=== PATIENT | female | born 1980 | race Caucasian/White ===

== ENCOUNTER 2018-01-30 07:39 | Day surgery (SDC) | payer MEDICARE ==
[2018-01-29 12:01] LABS: CHLORIDE,CL 103 mmol/L (98-107); SODIUM,NA 139 mmol/L (136-145)
[~2018-01-30 07:39] MED LIST: Sodium Chloride 0.9% 1,000 ML IV SCH; Sodium Chloride 0.9% 10 ML Syringe FLUSH PRN; Sodium Chloride 0.9% 2.5 ML Syringe FLUSH PRN; ceFAZolin 2 GM in Premix Bag 1 BAG IV ONE
[2018-01-30] MEDS ORDERED: fentaNYL 100 MCG/2 ML SDV IVPUSH PRN (08:28)
--- NOTE | 2018-01-30 08:36 | PCM.PREANE ---
Preanesthetic Assessment - Anesthesia/Transfusion/Family Hx Anesthesia History: Prior Anesthesia Without Reaction Family History of Anesthesia Reaction: No Transfusion History: No Prior Transfusion(s) - Review of Systems General: No Symptoms Pulmonary: No Symptoms Cardiovascular: No Symptoms Gastrointestinal: No Symptoms Neurological: No Symptoms Other: Reports: None - Physical Assessment NPO Status Date: 01/29/18 O2 Sat by Pulse Oximetry: 98 Respiratory Rate: 16 Vital Signs: Last Vital Signs Temp 36.8 C 01/30/18 08:15 Pulse 81 01/30/18 08:15 Resp 16 01/30/18 08:15 BP 124/71 01/30/18 08:15 Pulse Ox 98 01/30/18 08:15 Height: 1.75 m Weight: 90.265 kg ASA Class: 1 Mental Status: Alert & Oriented x3 Airway Class: Mallampati = 1 Dentition: Reports: Normal Dentition ROM/Head Extension: Full Lungs: Clear to Auscultation, Normal Respiratory Effort Cardiovascular: Regular Rate, Regular Rhythm - Lab Values: Laboratory Last Values WBC 4.64 K/uL (4.0-11.0) 01/29/18 11:18 RBC 4.60 M/uL (4.30-5.90) 01/29/18 11:18 Hgb 10.8 g/dL (12.0-16.0) L 01/29/18 11:18 Hct 35.3 % (36.0-46.0) L 01/29/18 11:18 MCV 76.7 fL (80.0-98.0) L 01/29/18 11:18 MCH 23.5 pg (27.0-32.0) L 01/29/18 11:18 MCHC 30.6 g/dL (31.0-37.0) L 01/29/18 11:18 RDW Std Deviation 43.0 fl (28.0-62.0) 01/29/18 11:18 RDW Coeff of Catarino 16 % (11.0-15.0) H 01/29/18 11:18 Plt Count 256 K/uL (150-400) 01/29/18 11:18 MPV 10.20 fL (7.40-12.00) 01/29/18 11:18 Sodium 139 mmol/L (136-145) 01/29/18 11:18 Potassium 4.0 mmol/L (3.5-5.1) 01/29/18 11:18 Chloride 103 mmol/L (98-107) 01/29/18 11:18 Carbon Dioxide 26.9 mmol/L (21.0-32.0) 01/29/18 11:18 BUN 15 mg/dL (7.0-18.0) 01/29/18 11:18 Creatinine 0.8 mg/dL (0.6-1.0) 01/29/18 11:18 Est Cr Clr Drug Dosing 100.62 mL/min 01/29/18 11:18 Estimated GFR (MDRD) > 60.0 ml/min 01/29/18 11:18 Glucose 91 mg/dL (74-106) 01/29/18 11:18 Calcium 9.0 mg/dL (8.5-10.1) 01/29/18 11:18 HCG, Qual NEGATIVE (NEG) 01/29/18 11:18 Blood Type O POSITIVE 01/29/18 11:18 Antibody Screen NEGATIVE 01/29/18 11:18 - Allergies Allergies/Adverse Reactions: Allergies Allergy/AdvReac Type Severity Reaction Status Date / Time Penicillins Allergy Rash Verified 01/23/18 11:12 - Anesthesia Plan Pre-Op Medication Ordered: None - Acknowledgements Anesthesia Type Planned: General Anesthesia Pt an Appropriate Candidate for the Planned Anesthesia: Yes Alternatives and Risks of Anesthesia Discussed w Pt/Guardian: Yes Pt/Guardian Understands and Agrees with Anesthesia Plan: Yes PreAnesthesia Questionnaire HEENT History: Reports: Other (See Below) Other HEENT History: has upper partial removable denture Musculoskeletal History: Reports: Back Pain, Chronic, Neck Pain, Chronic Psychiatric History: Reports: PTSD Hematologic History: Reports: Anemia - Past Surgical History Female Surgical History: Reports: Tubal Ligation - SUBSTANCE USE Smoking Status *Q: Never Smoker Recreational Drug Use History: No - HOME MEDS Home Medications: Home Meds Ferrous Sulfate 1 tab PO DAILY 01/23/18 [History] - CURRENT (IN HOUSE) MEDS Current Meds: Current Medications Fentanyl (Sublimaze) 50 mcg IVPUSH Q5M PRN PRN Reason: Pain (severe 7-10) Stop: 01/31/18 08:29 Sodium Chloride (Normal Saline) 1,000 mls @ 125 mls/hr IV ASDIRECTED MARLENE Last Admin: 10/04/18 08:15 Dose: 125 mls/hr Sodium Chloride (Saline Flush) 10 ml FLUSH ASDIRECTED PRN PRN Reason: Keep Vein Open Sodium Chloride (Saline Flush) 2.5 ml FLUSH ASDIRECTED PRN PRN Reason: Keep Vein Open Discontinued Medications Cefazolin Sodium/Dextrose 2 gm (/ Premix) 50 mls @ 100 mls/hr IV ONETIME ONE Stop: 01/29/18 11:37
[2018-01-30] MEDS ORDERED: Midazolam 1 MG/ML 2 ML SDV ONE (09:12)
[2018-01-30] MEDS ORDERED: Propofol 200 MG/20 ML SDV ONE (09:12)
[2018-01-30] MEDS ORDERED: fentaNYL 250 MCG/5 ML SDV ONE (09:12)
[2018-01-30] MEDS ORDERED: Ondansetron 4 MG/2 ML SDV ONE (09:12)
[2018-01-30] MEDS ORDERED: Lidocaine 2% 5 ML SDV ONE (09:12)
[2018-01-30] MEDS ORDERED: Morphine 4 MG/ML Syringe IVPUSH PRN (11:15)
[2018-01-30] MEDS ORDERED: Acetaminophen/oxyCODONE 325-5 MG Tab PO PRN ×2 (11:15)
[2018-01-30] MEDS ORDERED: Promethazine 25 MG/ML SDV IM PRN (11:15)
[2018-01-30] MEDS ORDERED: Ketorolac 30 MG/ML SDV IVPUSH ONE (11:15)
[2018-01-30] MEDS ORDERED: Ondansetron 4 MG/2 ML SDV IVPUSH PRN (11:15)
--- NOTE | 2018-01-30 11:19 | PCM.OPNOTE ---
- General Post-Op/Procedure Note Date of Surgery/Procedure: 01/30/18 Operative Procedure(s): Hystoroscopy Endometrial ablation Pre Op Diagnosis: DUB Post-Op Diagnosis: Same Anesthesia Technique: General ET Tube Primary Surgeon: Daniel Marshall Certified [place] Administrator: Carolina Camejo EBL in mLs: 20 Complications: None Condition: Good
--- NOTE | 2018-01-30 11:20 | PCM.DCSUM1 ---
Discharge Summary - Hospital Course Diagnosis: Stroke: No - Discharge Data Discharge Date: 01/30/18 Discharge Disposition: Home, Self-Care 01 Condition: Good - Patient Summary/Data Operative Procedure(s) Performed: Hystoroscopy Endometrial ablation - Patient Instructions Diet: Usual Diet as Tolerated Activity: As Tolerated Driving: Do Not Drive Showering/Bathing: August Shower - Discharge Plan Home Medications: Home Meds Ferrous Sulfate 1 tab PO DAILY 01/23/18 [History] - General Info Date of Service: 01/30/18 Functional Status: Reports: Pain Controlled - Review of Systems General: Reports: No Symptoms HEENT: Reports: No Symptoms Pulmonary: Reports: No Symptoms Cardiovascular: Reports: No Symptoms Gastrointestinal: Reports: No Symptoms Genitourinary: Reports: No Symptoms Musculoskeletal: Reports: No Symptoms Skin: Reports: No Symptoms Neurological: Reports: No Symptoms Psychiatric: Reports: No Symptoms - Patient Data Vitals - Most Recent: Last Vital Signs Temp 36.8 C 01/30/18 08:15 Pulse 81 01/30/18 08:15 Resp 16 01/30/18 08:36 BP 124/71 01/30/18 08:15 Pulse Ox 98 01/30/18 08:36 Weight - Most Recent: 90.265 kg Lab Results - Last 24 hrs: Laboratory Results - last 24 hr 01/29/18 01/29/18 01/29/18 Range/Units 11:18 11:18 11:18 WBC 4.64 (4.0-11.0) K/uL RBC 4.60 (4.30-5.90) M/uL Hgb 10.8 L (12.0-16.0) g/dL Hct 35.3 L (36.0-46.0) % MCV 76.7 L (80.0-98.0) fL MCH 23.5 L (27.0-32.0) pg MCHC 30.6 L (31.0-37.0) g/dL RDW Std Deviation 43.0 (28.0-62.0) fl RDW Coeff of Catarino 16 H (11.0-15.0) % Plt Count 256 (150-400) K/uL MPV 10.20 (7.40-12.00) fL Sodium 139 (136-145) mmol/L Potassium 4.0 (3.5-5.1) mmol/L Chloride 103 (98-107) mmol/L Carbon Dioxide 26.9 (21.0-32.0) mmol/L BUN 15 (7.0-18.0) mg/dL Creatinine 0.8 (0.6-1.0) mg/dL Est Cr Clr Drug Dosing 100.62 mL/min Estimated GFR (MDRD) > 60.0 ml/min Glucose 91 (74-106) mg/dL Calcium 9.0 (8.5-10.1) mg/dL HCG, Qual NEGATIVE (NEG) Blood Type Antibody Screen 01/29/18 Range/Units 11:18 WBC (4.0-11.0) K/uL RBC (4.30-5.90) M/uL Hgb (12.0-16.0) g/dL Hct (36.0-46.0) % MCV (80.0-98.0) fL MCH (27.0-32.0) pg MCHC (31.0-37.0) g/dL RDW Std Deviation (28.0-62.0) fl RDW Coeff of Catarino (11.0-15.0) % Plt Count (150-400) K/uL MPV (7.40-12.00) fL Sodium (136-145) mmol/L Potassium (3.5-5.1) mmol/L Chloride (98-107) mmol/L Carbon Dioxide (21.0-32.0) mmol/L BUN (7.0-18.0) mg/dL Creatinine (0.6-1.0) mg/dL Est Cr Clr Drug Dosing mL/min Estimated GFR (MDRD) ml/min Glucose (74-106) mg/dL Calcium (8.5-10.1) mg/dL HCG, Qual (NEG) Blood Type O POSITIVE Antibody Screen NEGATIVE Med Orders - Current: Current Medications Fentanyl (Sublimaze) 50 mcg IVPUSH Q5M PRN PRN Reason: Pain (severe 7-10) Stop: 01/31/18 08:29 Sodium Chloride (Normal Saline) 1,000 mls @ 125 mls/hr IV ASDIRECTED MARLENE Last Admin: 01/30/18 08:15 Dose: 125 mls/hr Ketorolac Tromethamine (Toradol) 30 mg IVPUSH ONETIME ONE Stop: 01/30/18 11:16 Ketorolac Tromethamine (Toradol) 30 mg IVPUSH Q6H PRN PRN Reason: Pain (severe 7-10) Stop: 02/04/18 11:15 Morphine Sulfate (Morphine) 4 mg IVPUSH Q2H PRN PRN Reason: Pain (severe 7-10) Ondansetron HCl (Zofran) 4 mg IVPUSH Q6H PRN PRN Reason: Nausea/Vomiting Oxycodone/Acetaminophen (Percocet 325-5 Mg) 1 tab PO Q4H PRN PRN Reason: Pain (moderate 4-6) Oxycodone/Acetaminophen (Percocet 325-5 Mg) 2 tab PO Q4H PRN PRN Reason: Pain (moderate 4-6) Promethazine HCl (Phenergan) 25 mg IM Q6H PRN PRN Reason: Nausea/Vomiting Sodium Chloride (Saline Flush) 10 ml FLUSH ASDIRECTED PRN PRN Reason: Keep Vein Open Sodium Chloride (Saline Flush) 2.5 ml FLUSH ASDIRECTED PRN PRN Reason: Keep Vein Open Discontinued Medications Fentanyl (Sublimaze) Confirm Administered Dose 250 mcg .ROUTE .STK-MED ONE Stop: 01/30/18 09:13 Cefazolin Sodium/Dextrose 2 gm (/ Premix) 50 mls @ 100 mls/hr IV ONETIME ONE Stop: 01/29/18 11:37 Lidocaine (Xylocaine-Mpf 2%) Confirm Administered Dose 5 ml .ROUTE .STK-MED ONE Stop: 01/30/18 09:13 Midazolam HCl (Versed 1 Mg/Ml) Confirm Administered Dose 2 mg .ROUTE .STK-MED ONE Stop: 01/30/18 09:13 Ondansetron HCl (Zofran) Confirm Administered Dose 4 mg .ROUTE .STK-MED ONE Stop: 01/30/18 09:13 Propofol (Diprivan 20 Ml) Confirm Administered Dose 200 mg .ROUTE .STK-MED ONE Stop: 01/30/18 09:13 - Exam General: Reports: Alert, Oriented HEENT: Reports: Pupils Equal, Pupils Reactive, EOMI, Mucous Membr. Moist/[place] Neck: Reports: Supple Lungs: Reports: Clear to Auscultation, Normal Respiratory Effort Cardiovascular: Reports: Regular Rate, Regular Rhythm GI/Abdominal Exam: Normal Bowel Sounds, Soft, Non-Tender, No Organomegaly, No Distention, No Abnormal Bruit, No Mass, Pelvis Stable (Female) Exam: Normal External Exam, Normal Speculum Exam, Normal Bimanual Exam Rectal (Female) Exam: Normal Exam, Normal Rectal Tone Back Exam: Reports: Normal Inspection, Full Range of Motion Extremities: Normal Inspection, Normal Range of Motion, Non-Tender, No Pedal Edema, Normal Capillary Refill Skin: Reports: Warm, Dry, Intact Wound/Incisions: Reports: Healing Well Neurological: Reports: No New Focal Deficit Psy/Mental Status: Reports: Alert, Normal Affect, Normal Mood
--- NOTE | 2018-01-30 11:42 | PCM.POSTAN ---
POST ANESTHESIA ASSESSMENT - MENTAL STATUS Mental Status: Alert, Oriented - RESPIRATORY Respiratory Status: Respiratory Rate WNL, Airway Patent, O2 Saturation Stable - CARDIOVASCULAR CV Status: Pulse Rate WNL, Blood Pressure Stable - GASTROINTESTINAL GI Status: No Symptoms - PAIN Pain Score: 0 - POST OP HYDRATION Hydration Status: Adequate & Stable
--- NOTE | 2018-01-30 12:16 | PCM48HPAN ---
Post Anesthesia Note - EVALUATION WITHIN 48HRS OF ANESTHETIC Vital Signs in Normal Range: Yes Patient Participated in Evaluation: Yes Respiratory Function Stable: Yes Airway Patent: Yes Cardiovascular Function Stable: Yes Hydration Status Stable: Yes Pain Control Satisfactory: Yes Nausea and Vomiting Control Satisfactory: Yes Mental Status Recovered: Yes Resp Rate: 16
--- NOTE | 2018-01-30 13:15 | OR ---
SURGEON: Daniel Marshall MD DATE OF PROCEDURE: 01/30/2018 PREOPERATIVE DIAGNOSIS: Dysfunctional uterine bleeding. POSTOPERATIVE DIAGNOSIS: Dysfunctional uterine bleeding. OPERATION PERFORMED: Hysteroscopy and endometrial ablation. STEAM FRAME OPERATOR: BRO Barber. ANESTHESIA: General endotracheal intubation, Constantine Puga. ESTIMATED BLOOD LOSS: Less than 20 mL. COMPLICATIONS: None. FINDINGS: Thickening of the endometrium. INDICATION FOR SURGERY: [place] refer to the admit note. PROCEDURE IN DETAIL: The patient was brought to the OR, properly identified and after adequate level of anesthesia, the patient was placed in lithotomy position, prepped and draped in sterile fashion as usual. She was initially dilated to accommodate the hysteroscope. Hysteroscopy was performed, and endometrial cavities have no fibroid, no polyps that was documented. Then, using NovaSure ablation following the proper step and the guidelines, the ablation was placed and all the check ryan was followed and passed the check ryan, the cervix was sealed and then the ablation was performed for 2 minutes. Once this was done, the ablation was removed and hysteroscopy was performed. The endometrial cavity was properly and completely ablated. Satisfied with these findings, instruments harvested from the vagina. Instrument and sponge counts were correct. The patient tolerated the procedure well and went to recovery room in stable general condition. XIOMARA / VAN /[id number]
[2018-01-30] MEDS ORDERED: Ketorolac 30 MG/ML SDV IVPUSH PRN (17:30)
== END 2018-01-30 13:49 | disposition home or self-care (01) ==
LOC: MW.SDS 07:39
PROVIDERS: ATTEND Obstetrics & Gynecology
DX: N93.8 Other specified abnormal uterine and vaginal bleeding (principal); N92.0 Excessive and frequent menstruation with regular cycle; D64.9 Anemia, unspecified
CPT/HCPCS: 36415; 58563; 80048; 84703; 85027; 86850; 86900; 86901; A9270; J1885; J2250; J2405; J2704; J3010; J7040

== ENCOUNTER 2018-06-01 08:14 | Emergency (ER) | payer MEDICARE, MEDICAID ==
[2018-06-01] MEDS ORDERED: Ibuprofen 600 MG Tab PO ONE (08:30)
--- NOTE | 2018-06-01 08:33 | EDM.PDOC ---
ED HPI GENERAL MEDICAL PROBLEM - General Chief Complaint: Lower Extremity Injury/Pain Stated Complaint: TWISTED ANKLE Time Seen by Provider: 06/01/18 08:21 - History of Present Illness INITIAL COMMENTS - FREE TEXT/NARRATIVE: HISTORY AND PHYSICAL: History of present illness: The patient is a healthy 37-year-old female with history of a tubal ligation who presents after rolling and twisting her ankle on some stairs at about 4 AM, 4-1/2 hours ago. The patient said she was trying to avoid a cat when she did this she did not fall to the ground and caught herself. She didn't hit her head pass out or black out and has no head neck or back pain complains of pain only at the lateral left ankle. She denies foot or toe pain and heel pain in proximal leg knee thigh or hip pain. She has no history of prior injuries of this ankle and only took 200 mg of ibuprofen this morning. Review of systems: As per history of present illness and below otherwise all systems reviewed and negative. Past medical history: As per history of present illness and as reviewed below otherwise noncontributory. Surgical history: As per history of present illness and as reviewed below otherwise noncontributory. Social history: No reported history of drug or alcohol abuse. Family history: As per history of present illness and as reviewed below otherwise noncontributory. Physical exam: General: Well-developed well-nourished female who is nontoxic and vital signs were noted by me. HEENT: Atraumatic, normocephalic negative for conjunctival pallor or scleral icterus, mucous membranes moist, throat clear, neck supple, nontender, trachea midline. Lungs: Clear to auscultation, breath sounds equal bilaterally, chest nontender. Heart: S1S2, regular rate and rhythm no overt murmurs Abdomen: Deferred Pelvis: Stable nontender. Genitourinary: Deferred. Rectal: Deferred. Extremities: Atraumatic with full range of motion of all extremities with the exception of the left ankle. At the lateral left ankle there is diffuse soft tissue swelling and tenderness but no bony defects are appreciated. Alignment of the ankle appears to be normal and pulses distally are intact as is good cap refill. There is no metatarsal calcaneal or toe tenderness in the left foot distally. There is no proximal tib-fib knee thigh or hip pain defects or deformities.the calves are negative for cords or calf pain. Neurovascular unremarkable. Neuro: Awake, alert, oriented. Cranial nerves II through XII unremarkable. Cerebellum unremarkable. Motor and sensory unremarkable throughout. Exam nonfocal. Diagnostics: X-ray left ankle Therapeutics: Ice pack, ibuprofen, crutches orthopedic boot Impression: Left ankle injury/left ankle sprain Definitive disposition and diagnosis as appropriate pending reevaluation and review of above. left ankle Pain Score (Numeric/FACES): 7 - Related Data Allergies Allergy/AdvReac Type Severity Reaction Status Date / Time Penicillins Allergy Rash Verified 06/01/18 08:24 Home Meds: Home Meds Ferrous Sulfate 1 tab PO DAILY 01/23/18 [History] Past Medical History HEENT History: Reports: Other (See Below) Other HEENT History: has upper partial removable denture Cardiovascular History: Reports: None Respiratory History: Reports: None Gastrointestinal History: Reports: None Genitourinary History: Reports: None SENIOR ACCOUNT DIRECTOR History: Reports: None Musculoskeletal History: Reports: Back Pain, Chronic, Neck Pain, Chronic Neurological History: Reports: None Psychiatric History: Reports: PTSD Endocrine/Metabolic History: Reports: None Hematologic History: Reports: Anemia Immunologic History: Reports: None Oncologic (Cancer) History: Reports: None Dermatologic History: Reports: None - Infectious Disease History Infectious Disease History: Reports: Chicken Pox, Other (See Below) Other Infectious Disease History: childhood - Past Surgical History Head Surgeries/Procedures: Reports: None HEENT Surgical History: Reports: None Cardiovascular Surgical History: Reports: None Respiratory Surgical History: Reports: None GI Surgical History: Reports: None Female Surgical History: Reports: Tubal Ligation Endocrine Surgical History: Reports: None Neurological Surgical History: Reports: None Musculoskeletal Surgical History: Reports: None Oncologic Surgical History: Reports: None Dermatological Surgical History: Reports: None Social & Family History - Family History Family Medical History: Noncontributory - Tobacco Use Smoking Status *Q: Never Smoker Second Hand Smoke Exposure: No - Caffeine Use Caffeine Use: Reports: Coffee, Energy Drinks, Soda, Tea - Recreational Drug Use Recreational Drug Use: No Review of Systems - Review of Systems Review Of Systems: ROS reveals no pertinent complaints other than HPI. ED EXAM, GENERAL - Physical Exam Exam: See Below (see dictation) Course - Vital Signs Last Recorded V/S: Last Vital Signs Temp 36.4 C 06/01/18 08:22 Pulse 90 06/01/18 08:22 Resp 16 06/01/18 08:22 BP 128/89 06/01/18 08:22 Pulse Ox 99 06/01/18 08:22 - Orders/Labs/Meds Orders: Active Orders 24 hr Category Date Time Status DME for Discharge [COMM] Stat Oth 06/01/18 09:01 Ordered Meds: Medications Discontinued Medications Generic Name Dose Route Start Last Admin Trade Name Osvaldo PRN Reason Stop Dose Admin Ibuprofen 600 mg 06/01/18 08:30 06/01/18 08:42 Motrin PO 06/01/18 08:31 600 mg ONETIME ONE Administration Departure - Departure Time of Disposition: 09:02 Disposition: Home, Self-Care 01 Condition: Good Clinical Impression: Left ankle injury Qualifiers: Encounter type: initial encounter Qualified Code(s): S99.912A - Unspecified injury of left ankle, initial encounter - Discharge Information Referrals: PCP,Unknown [Primary Care Provider] - Forms: ED Department Discharge Additional Instructions: The following information is given to patients seen in the emergency department who are being discharged to home. This information is to outline your options for follow-up care. We provide all patients seen in our emergency department with a follow-up referral. The need for follow-up, as well as the timing and circumstances, are variable depending upon the specifics of your emergency department visit. If you don't have a primary care physician on staff, we will provide you with a referral. We always advise you to contact your personal physician following an emergency department visit to inform them of the circumstance of the visit and for follow-up with them and/or the need for any referrals to a consulting specialist. The emergency department will also refer you to a specialist when appropriate. This referral assures that you have the opportunity for followup care with a specialist. All of these measure are taken in an effort to provide you with optimal care, which includes your followup. Under all circumstances we always encourage you to contact your private physician who remains a resource for coordinating your care. When calling for followup care, please make the office aware that this follow-up is from your recent emergency room visit. If for any reason you are refused follow-up, please contact the [facility] emergency department at and ask to speak to the emergency department charge nurse. [facility]--Orthopedic clinic Professional [address] [address] Ice and elevate the ankle as much as possible and do not weight-bear until you' re followed up in the clinic. Use crutches at all times. Wear the orthopedic boot been given at all times and loosen and/or remove at sleep times. Please call the clinic tomorrow morning at 8 AM to schedule a follow-up appointment for further care and evaluation and return to ER as needed and as discussed. Use [id number] ibuprofen and/or Tylenol in the appropriate doses for your size for pain management - My Orders Last 24 Hours: My Active Orders 06/01/18 09:01 DME for Discharge [COMM] Stat - Assessment/Plan Last 24 Hours: My Active Orders 06/01/18 09:01 DME for Discharge [COMM] Stat
--- NOTE | 2018-06-01 08:59 | CR ---
HISTORY: Fall. Ankle injury. TECHNIQUE: Three views of left ankle. COMPARISON: No prior. FINDINGS: No acute fracture. There is soft tissue swelling overlying the lateral malleolus. Mild ankle joint degenerative changes. No widening of the ankle mortise. Tiny plantar calcaneal spur. Small focus of ossification at the Achilles attachment to posterior calcaneus. IMPRESSION: 1. No acute fracture. 2. Soft tissue swelling overlying the lateral malleolus. Dictated by Leland English MD @ 06/01/2018 8:57:40 AM Dictated by: Leland English MD @ 06/01/2018 08:57:44 (Electronically Signed)
== END 2018-06-01 09:18 | disposition home or self-care (01) ==
LOC: MW.ED 08:14
DX: S99.912A Unspecified injury of left ankle, initial encounter (principal); Z88.0 Allergy status to penicillin; X50.1XXA Overexertion from prolonged static or awkward postures, initial encounter
CPT/HCPCS: 73610; 99283; A9270

== ENCOUNTER 2019-06-04 17:25 | Emergency (ER) | payer MEDICAID, MEDICARE ==
[2019-06-04] MEDS ORDERED: Azithromycin 250 MG Tab PO ONE (18:58)
[2019-06-04] MEDS ORDERED: guaiFENesin 600 MG Tab.ER PO ONE (18:59)
[2019-06-04] MEDS ORDERED: Benzonatate 100 MG Cap PO ONE (19:00)
--- NOTE | 2019-06-04 19:01 | EDM.PDOC ---
ED HPI GENERAL MEDICAL PROBLEM - General Chief Complaint: Respiratory Problem Stated Complaint: COUGH Time Seen by Provider: 06/04/19 18:22 Source of Information: Reports: Patient History Limitations: Reports: No Limitations - History of Present Illness INITIAL COMMENTS - FREE TEXT/NARRATIVE: This 38 year old female is admitted to the ED with a chief complaint of coughing (non-productive) for 2-3 days. She states that she is taking in fluids fine and eating well. No nausea or vomiting. She is status post tubal ligation. She denies any other symptoms at this time. Onset: Gradual (three days) Duration: Getting Worse Location: Reports: Chest Severity: Mild (to moderate) Associated Symptoms: Reports: Cough, Shortness of Breath (mild SOB). Denies: cough w sputum, Fever/Chills, Nausea/Vomiting ribs Pain Score (Numeric/FACES): 5 - Related Data Allergies Allergy/AdvReac Type Severity Reaction Status Date / Time Penicillins Allergy Rash Verified 06/04/19 18:00 Home Meds: Home Meds Azithromycin [Zithromax] 500 mg PO DAILY 7 Days #7 tab 06/04/19 [Rx] Benzonatate 100 mg PO BID PRN 5 Days #10 capsule 06/04/19 [Rx] guaiFENesin [Mucinex] 600 mg PO BID 5 Days #10 tab.er.12h 06/04/19 [Rx] Past Medical History HEENT History: Reports: Other (See Below) Other HEENT History: has upper partial removable denture Cardiovascular History: Reports: None Respiratory History: Reports: None Gastrointestinal History: Reports: None Genitourinary History: Reports: None CIG[employer] P[employer]ER [employer] P[employer]ER History: Reports: None Musculoskeletal History: Reports: Back Pain, Chronic, Neck Pain, Chronic Neurological History: Reports: None Psychiatric History: Reports: PTSD Endocrine/Metabolic History: Reports: None Hematologic History: Reports: Anemia Immunologic History: Reports: None Oncologic (Cancer) History: Reports: None Dermatologic History: Reports: None - Infectious Disease History Infectious Disease History: Reports: Mumps Other Infectious Disease History: childhood - Past Surgical History Head Surgeries/Procedures: Reports: None HEENT Surgical History: Reports: None Cardiovascular Surgical History: Reports: None Respiratory Surgical History: Reports: None GI Surgical History: Reports: None Female Surgical History: Reports: Endometrial Ablation, Tubal Ligation Endocrine Surgical History: Reports: None Neurological Surgical History: Reports: None Musculoskeletal Surgical History: Reports: None Oncologic Surgical History: Reports: None Dermatological Surgical History: Reports: None Social & Family History - Family History Family Medical History: Noncontributory - Tobacco Use Smoking Status *Q: Current Every Day Smoker Years of Tobacco use: 10 Packs/Tins Daily: 0.5 - Caffeine Use Caffeine Use: Reports: Coffee, Energy Drinks, Soda, Tea - Recreational Drug Use Recreational Drug Use: No ED ROS GENERAL - Review of Systems Review Of Systems: See Below Constitutional: Reports: No Symptoms HEENT: Reports: No Symptoms Respiratory: Reports: Shortness of Breath (mild SOB), Cough. Denies: Sputum Cardiovascular: Reports: No Symptoms. Denies: Chest Pain Endocrine: Reports: No Symptoms GI/Abdominal: Reports: No Symptoms : Reports: No Symptoms Musculoskeletal: Reports: No Symptoms Skin: Reports: No Symptoms Neurological: Reports: No Symptoms ED EXAM, GENERAL - Physical Exam Exam: See Below Exam Limited By: No Limitations General Appearance: Alert, WD/WN, No Apparent Distress Eye Exam: Bilateral Eye: EOMI, Normal Inspection, PERRL Ears: Normal External Exam, Normal Canal, Hearing Grossly Normal, Normal TMs Ear Exam: Bilateral Ear: Auricle Normal, Canal Normal, TM normal Nose: Normal Inspection, Normal Mucosa, No Blood Throat/Mouth: Normal Inspection, Normal Lips, Normal Teeth, Normal Gums, Normal Oropharynx Head: Atraumatic, Normocephalic Neck: Normal Inspection, Supple, Full Range of Motion Respiratory/Chest: No Respiratory Distress, Decreased Breath Sounds (left base) , Rhonchi (both bases). No: Crackles, Rales Cardiovascular: Normal Peripheral Pulses, Regular Rate, Rhythm, No JVD, No Murmur, No Rub Peripheral Pulses: 3+: Carotid (L), Carotid (R), Radial (L), Radial (R), Dorsalis Pedis (L), Dorsalis Pedis (R) GI/Abdominal: Normal Bowel Sounds, Soft, No Organomegaly, No Distention, No Abnormal Bruit (Female) Exam: Deferred Rectal (Female) Exam: Deferred Back Exam: Normal Inspection, Full Range of Motion, NT Extremities: Normal Inspection, Normal Range of Motion, Non-Tender Neurological: Alert, Oriented, CN II-XII Intact, Normal Gait, Normal Reflexes Psychiatric: Normal Affect, Normal Mood Skin Exam: Warm, Dry, Intact, Normal Color, No Rash Lymphatic: No Adenopathy Course - Vital Signs Text/Narrative:: I reviewed all of the patients diagnostic test including her chest x-ray. I discussed with the patient that she most likely have Bronchitis/early pneumonia. She will be discharged. The patient agree with the discharge plan. Last Recorded V/S: Last Vital Signs Temp 98.7 F 06/04/19 18:01 Pulse 94 06/04/19 18:01 Resp 18 06/04/19 18:01 BP 139/76 06/04/19 18:01 Pulse Ox 94 L 06/04/19 18:01 - Orders/Labs/Meds Orders: Active Orders 24 hr Category Date Time Status Chest 1V Frontal [CR] Stat Exams 06/04/19 18:53 Taken Meds: Medications Discontinued Medications Generic Name Dose Route Start Last Admin Trade Name Freq PRN Reason Stop Dose Admin Azithromycin 500 mg 06/04/19 18:58 06/04/19 19:10 Zithromax PO 06/04/19 18:59 500 mg Q24H ONE Administration Benzonatate 200 mg 06/04/19 19:00 06/04/19 19:10 Tessalon Perles PO 06/04/19 19:01 200 mg ONETIME ONE Administration Guaifenesin 1,200 mg 06/04/19 18:59 06/04/19 19:09 Mucinex PO 06/04/19 19:00 1,200 mg ONETIME ONE Administration Departure - Departure Time of Disposition: 19:47 Disposition: Home, Self-Care 01 Condition: Good Clinical Impression: Bronchitis - Discharge Information *PRESCRIPTION DRUG MONITORING PROGRAM REVIEWED*: Yes *COPY OF PRESCRIPTION DRUG MONITORING REPORT IN PATIENT ASHIA: Yes Instructions: Acute Bronchitis, Adult, [id number] Referrals: PCP,None [Primary Care Provider] - Forms: ED Department Discharge Additional Instructions: Take all medications as directed. Follow up with your PCP in the next two to four days. Drink plenty of clear liquids for the next 24-48 hours. Rest for the next 24 hours. Return to the ED if your condition gets worse or should you have any questions or concerns. The following information is given to patients seen in the emergency department who are being discharged to home. This information is to outline your options for follow-up care. We provide all patients seen in our emergency department with a follow-up referral. The need for follow-up, as well as the timing and circumstances, are variable depending upon the specifics of your emergency department visit. If you don't have a primary care physician on staff, we will provide you with a referral. We always advise you to contact your personal physician following an emergency department visit to inform them of the circumstance of the visit and for follow-up with them and/or the need for any referrals to a consulting specialist. The emergency department will also refer you to a specialist when appropriate. This referral assures that you have the opportunity for follow-up care with a specialist. All of these measure are taken in an effort to provide you with optimal care, which includes your follow-up. Under all circumstances we always encourage you to contact your private physician who remains a resource for coordinating your care. When calling for follow-up care, please make the office aware that this follow-up is from your recent emergency room visit. If for any reason you are refused follow-up, please contact the [facility] Emergency Department at and asked to speak to the emergency department charge nurse. Sepsis Event Note - Evaluation Sepsis Screening Result: No Definite Risk - Focused Exam Vital Signs: Vital Signs Temp Pulse Resp BP Pulse Ox 06/04/19 18:01 98.7 F 94 18 139/76 94 L Date Exam was Performed: 06/04/19 Time Exam was Performed: 19:45 - My Orders Last 24 Hours: My Active Orders 06/04/19 18:53 Chest 1V Frontal [CR] Stat - Assessment/Plan Last 24 Hours: My Active Orders 06/04/19 18:53 Chest 1V Frontal [CR] Stat
--- NOTE | 2019-06-04 20:16 | CR ---
Chest: Portable view of the chest was obtained. Comparison: No previous chest x-ray. Heart size and mediastinum are normal. Minimal increased density within the right lung base most likely due to focal bronchitis. Lungs otherwise are clear. Bony structures are unremarkable. Impression: 1. Minimal density within the right lung base most likely representing focal bronchitis. 2. Portable chest x-ray is otherwise unremarkable. Diagnostic code #3 This report was dictated in [place] Standard Time
== END 2019-06-04 20:01 | disposition home or self-care (01) ==
LOC: MW.ED 17:25
DX: J40 Bronchitis, not specified as acute or chronic (principal); F17.210 Nicotine dependence, cigarettes, uncomplicated; Z88.0 Allergy status to penicillin
CPT/HCPCS: 71045; 87804; 99285; A9270